=== PATIENT | female | born 1980 | race Caucasian/White ===

== ENCOUNTER 2021-01-24 06:26 | Observation (INO) ==
[2021-01-24] MEDS ORDERED: ANCEF 1 GRAM IV PREMIX* 2 G/100 ML BAG IV ONE (06:50)
[2021-01-24] MEDS ORDERED: D5 1/2 NS 1000 ML 1,000 ML IV ONE (06:51)
[2021-01-24] MEDS ORDERED: BETADINE SOLN ONE (06:55)
[2021-01-24] MEDS ORDERED: VASOSTRICT INJ 20 UNITS VIAL ONE (06:58)
[2021-01-24] MEDS ORDERED: FENTANYL INJ 100 mcg ONE (07:09)
[2021-01-24] MEDS ORDERED: DILAUDID INJ ONE (07:09)
[2021-01-24] MEDS ORDERED: BRIDION ONE (07:12)
[2021-01-24] MEDS ORDERED: VERSED ONE (07:20)
[2021-01-24] MEDS ORDERED: SUPRANE ONE (07:20)
[2021-01-24] MEDS ORDERED: QUELICIN (OR ANECTINE) ONE (07:20)
[2021-01-24] MEDS ORDERED: DIPRIVAN VIAL ONE (07:20)
[2021-01-24] MEDS ORDERED: REGLAN INJ 10 MG VIAL ONE (07:20)
[2021-01-24] MEDS ORDERED: XYLOCAINE 1 % (PLAIN) ONE (07:20)
[2021-01-24] MEDS ORDERED: XYLOCAINE 2 % (PLAIN) ONE (07:20)
[2021-01-24] MEDS ORDERED: ANCEF VIAL 1 GRAM IVP ONE (07:24)
[2021-01-24] MEDS ORDERED: D5 1/2 NS 1000 ML 1,000 ML IV SCH (07:24)
[2021-01-24] MEDS ORDERED: LR 1000 ML IV 1,000 ML IV ONE (09:03)
[2021-01-24] MEDS ORDERED: REGLAN INJ 10 MG VIAL IVP PRN (09:54)
[2021-01-24] MEDS ORDERED: PHENERGAN INJ 25 MG IM PRN (09:54)
[2021-01-24] MEDS ORDERED: BENADRYL INJ 50 MG VIAL IVP PRN ×3 (09:54→10:22)
[2021-01-24] MEDS ORDERED: DILAUDID INJ IVP PRN (09:54)
[2021-01-24] MEDS ORDERED: ZOFRAN INJ 4 MG VIAL IVP PRN ×2 (09:54→10:22)
[2021-01-24] MEDS ORDERED: BARHEMSYS INJ IVP PRN (09:54)
[2021-01-24] MEDS ORDERED: BARHEMSYS INJ ONE (10:01)
[2021-01-24] MEDS ORDERED: TORADOL 30 MG VIAL ONE (10:12)
[2021-01-24] MEDS ORDERED: TORADOL 30 MG VIAL IVP ONE (10:14)
[2021-01-24] MEDS ORDERED: TORADOL 30 MG VIAL IVP PRN ×2 (10:22)
[2021-01-24] MEDS ORDERED: PERCOCET TAB 5/325 MG PO PRN (10:22)
[2021-01-24] MEDS ORDERED: NARCAN INJ IVP PRN (10:22)
[2021-01-24] MEDS: D5 1/2 NS 1000 ML 1,000 ML IV SCH ×3 (11:00→19:30)
[2021-01-24] MEDS: REGLAN INJ 10 MG VIAL IVP PRN ×2 (11:09→18:00)
[2021-01-24 11:24] VITALS: BMI 30.5
[2021-01-24] MEDS: ZOFRAN INJ 4 MG VIAL IVP PRN ×2 (15:11→22:33)
[2021-01-25] MEDS: D5 1/2 NS 1000 ML 1,000 ML IV SCH (02:01)
[2021-01-25 05:16] LABS: BASOPHILS % (AUTO) 0.1 % (0.2-1.0); EOSINOPHILS % (AUTO) 0.1 % (0.9-2.9); HEMATOCRIT 30.2 % (36.0-47.0); HEMOGLOBIN 10.1 g/dL (12.0-16.0); LYMPHOCYTES # (AUTO) 1.7 X10^3/uL (1.3-2.9); LYMPHOCYTES % (AUTO) 13.2 % (21.0-51.0); MEAN CORPUSCULAR HGB CONC 33.5 g/dL (33.0-35.0); MEAN CORPUSCULAR VOLUME 77.6 fL (80.0-100.0); MEAN PLATELET VOLUME 9.6 fL (7.4-11.0); MONOCYTES # (AUTO) 0.6 x10^3/uL (0.3-0.8); MONOCYTES % (AUTO) 4.6 % (0.0-13.0); NEUTROPHILS # (AUTO) 10.8 x10^3/uL (2.2-4.8); PLATELET COUNT 251 X10^3/uL (150.0-450.0); RED BLOOD COUNT 3.89 X10^6/uL (3.5-5.4); RED CELL DISTRIBUTION WIDTH 14.3 % (11.6-16.5); WHITE BLOOD COUNT 13.2 X10^3/uL (3.6-10.0)
[2021-01-25 05:22] LABS: BLOOD UREA NITROGEN 5 mg/dL (7-18); CARBON DIOXIDE 30.9 mmol/L (21-32); CHLORIDE 102 mmol/L (98-107); CREATININE 0.58 mg/dL (0.55-1.02); SODIUM 139 mmol/L (136-145); eGFR NON BLACK RACES > 60 (>60)
[2021-01-25] MEDS ORDERED: MOTRIN TAB 800 MG PO PRN (07:23)
[2021-01-25] MEDS ORDERED: PERCOCET TAB 5/325 MG PO PRN (07:23)
[2021-01-25] MEDS ORDERED: COLACE CAP 100 MG PO SCH (09:00)
[2021-01-25 12:30] VITALS: BP 90/50
== END 2021-01-25 12:30 | disposition home or self-care (01) ==
LOC: MED/SURG 06:26 → SURG1 06:26 → MED/SURG 10:34
PROVIDERS: ADMIT Specialist; ATTEND Specialist
DX: Z20.822 Contact with and (suspected) exposure to COVID-19; N87.0 Mild cervical dysplasia; Z01.818 Encounter for other preprocedural examination; A63.0 Anogenital (venereal) warts